=== PATIENT | female | born 1965 | race Caucasian/White ===

== ENCOUNTER 2017-04-12 08:40 | Day surgery (SDC) | payer BC ==
[2017-04-12] MEDS ORDERED: Midazolam 1 MG/ML 2 ML SDV ONE (09:22)
[2017-04-12] MEDS ORDERED: fentaNYL 100 MCG/2 ML SDV ONE (09:22)
[2017-04-12] MEDS ORDERED: Propofol 200 MG/20 ML SDV ONE ×2 (09:22→10:04)
[2017-04-12] MEDS ORDERED: Lactated Ringers 1,000 ML IV SCH (09:45)
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
== END 2017-04-12 11:15 | disposition home or self-care (01) ==
LOC: JP.SDS 08:40
PROVIDERS: ATTEND Surgery
DX: R19.5 Other fecal abnormalities (principal); Z90.49 Acquired absence of other specified parts of digestive tract
CPT/HCPCS: 45378; J2250; J2704; J7120; J3010

== ENCOUNTER 2024-01-28 13:37 | Emergency (ER) | payer OTHER, BC ==
[2024-01-28] MEDS: Ketorolac 30 MG/ML SDV IVPUSH ONE (14:43)
[2024-01-28] MEDS ORDERED: Sodium Chloride 0.9% 10 ML Syringe FLUSH PRN (15:06)
[2024-01-28] MEDS: Sodium Chloride 0.9% 100 ML IV SCH (16:33)
[2024-01-28] MEDS: Iopamidol 612 MG/ML 100 ML Bottle IV SCH (16:33)
[2024-01-28] MEDS: Sodium Chloride 0.9% 10 ML Syringe FLUSH PRN (16:33)
== END 2024-01-28 16:12 | disposition home or self-care (01) ==
LOC: JP.ED 13:37
DX: S20.211A Contusion of right front wall of thorax, initial encounter (principal); Z90.49 Acquired absence of other specified parts of digestive tract; Z79.899 Other long term (current) drug therapy; Z88.5 Allergy status to narcotic agent; Z88.0 Allergy status to penicillin; Z88.8 Allergy status to other drugs, medicaments and biological substances; V28.09XA Other motorcycle driver injured in noncollision transport accident in nontraffic accident, initial encounter
CPT/HCPCS: 71260; 96374; 99283; J1885; J3490; Q9967